=== PATIENT | female | born 1990 | race Hispanic/Latino ===

== ENCOUNTER → 2017-08-04 | Day surgery (SDC) | payer OTHER ==
[~2017-08-04] MED LIST: Acetaminophen 500 MG TAB PO PRN
[2017-08-04 16:13] VITALS: BP 109/55; TEMP 99.7; BMI 20.2
--- NOTE | 2017-08-04 16:49 | PDOC.EVN ---
Event Note - Event Note Event Note: Case reviewed with the residents tax services professional. This patient is a at 20 weeks and 2 days with symptoms of lower back pain and chills. HX CS X 2 in past. Some urinary sxs as well. We will: order cath UA and culture, CBC, CMP, and had flu last week. No URI sxs now.
[2017-08-04 17:02] LABS: #Basophils 0.1 thou/uL (0.0-0.2); #Eosinphils 0.4 thou/uL (0.0-0.7); #Lymphocytes 2.1 thou/uL (1.20-3.40); #Monocytes 0.7 thou/uL (0.11-0.59); #Neutrophils 9.5 thou/uL (1.40-6.50); %Basophils 0.7 % (0.0-1.0); %Eosinophils 3.4 % (0.0-10.0); %Lymphocytes 16.6 % (21.0-51.0); %Monocytes 5.7 % (0.0-10.0); %Neutrophils 73.7 % (42.0-75.0); Hemoglobin 12.4 g/dL (12.0-16.0); Mean Corpuscular HGB CONC 34.4 g/dL (32.0-36.0); Mean Corpuscular Hemoglobin 31.3 pg (27.0-31.0); Mean Platelet Volume 6.8 fL (7.4-10.4); Platelet Count 419 thou/uL (130-400); RBC Distribution Width 11.9 % (11.5-14.5); Red Blood Cell (RBC) Count 3.96 mill/uL (4.20-5.40); White Blood Cell (WBC) Count 12.8 thou/uL (4.8-10.8)
[2017-08-04 17:22] LABS: ALT (SGPT) 13 U/L (8-55); AST (SGOT) 10 U/L (5-34); Albumin 3.7 g/dL (3.5-5.0); Alkaline Phosphatase 55 U/L (40-150); Anion Gap 12 mmol/L (10-20); BUN (Urea Nitrogen) 7 mg/dL (7.0-18.7); Bilirubin, Total 0.2 mg/dL (0.2-1.2); Calc. Creatinine Clearance 121 mL/min (70-130); Calcium 9.5 mg/dL (7.8-10.44); Carbon Dioxide 26 mmol/L (22-29); Chloride 103 mmol/L (98-107); Estimated GFR-MDRD Greater than 90; Glucose 72 mg/dL (70-105); Potassium 4.2 mmol/L (3.5-5.1); Protein, Total 6.7 g/dL (6.0-8.3); Sodium 137 mmol/L (136-145)
[2017-08-04 17:38] LABS: Bilirubin Negative (Negative); Blood, Urine Large (Negative); Clarity CLEAR (Clear); Glucose, Urine (Dipstick) Negative (Negative); Leukocyte Negative (Negative); Nitrite Negative (Negative); Protein, Urine (Dipstick) Negative (Neg-Trace); Specific Gravity, Urine 1.012 (1.002-1.036); Urobilinogen 0.2 mg/dL (0.2-1.0)
[2017-08-04 17:41] LABS: Bacteria/HPF None Seen HPF (None Seen); Hyaline Casts/LPF 0-3 HYALINE CAST LPF (0-3 Hyaline); Squamous Epithelial None Seen HPF (0-3); WBC/HPF None Seen HPF (0-3)
--- NOTE | 2017-08-04 18:13 | PDOC.EVN ---
Event Note - Event Note Event Note: Faculty note: Hematuria noted on UA. CBC with WBC 12, Creatinine normal. Due to left sided sxs, and hematuria, I have ordered left renal sono to eval for calculi. Residents aware.
--- NOTE | 2017-08-04 20:57 | ULT ---
RENAL ULTRASOUND: Indication: Flank pain, left sided, with hematuria. FINDINGS: There is symmetric renal sizes, approximately 12 cm in length bilaterally. There is mild prominence o f the right renal collecting system. No evidence of a left sided hydronephrosis. Urinary bladder is g rossly unremarkable. Incidental noted of a partially imaged intrauterine gestation. IMPRESSION: Mild prominence of right urinary collecting system which may be on the basis of patient's gestational state. Correlate clinically. If necessary, imaging follow up may be obtained. POS: [facility]
--- NOTE | 2017-08-04 21:02 | PDOC.EVN ---
Event Note - Event Note Event Note: Renal sono with no overt stone. As no bacteruria/pyuria, pyelo is less likely as DX. I suspect hemorrhagic cystitis. No temp/fever here. OK for outpatient RX with macrobid with clinic follow up to check urine culture and GC/CHL PCR which were collected today. Case D/W residents.
[2017-08-06 22:33] LABS: Chlamydia by PCR Not Detected (NotDetected); GC by PCR Not Detected (NotDetected)
== END | disposition home or self-care (01) ==
LOC: ERS 14:15 → L&D/OP 15:17
PROVIDERS: ATTEND Obstetrics & Gynecology
DX: O99.89 Other specified diseases and conditions complicating pregnancy, childbirth and the puerperium (principal); R10.9 Unspecified abdominal pain; M54.5 Low back pain; R68.83 Chills (without fever); Z3A.20 20 weeks gestation of pregnancy; Z79.899 Other long term (current) drug therapy; Z90.721 Acquired absence of ovaries, unilateral; Z98.890 Other specified postprocedural states
CPT/HCPCS: 36415; 51701; 76770; 80053; 81003; 81015; 84702; 85025; 87086; 87491; 87591; 99285; A4353

== ENCOUNTER 2019-11-30 21:34 | Emergency (ER) | payer OTHER, SELFPAY ==
[~2019-11-30 21:34] MED LIST changes: -Acetaminophen 500 MG TAB PO PRN; +Iopamidol-370 76% 500 ML 1 ML ONE
[2019-11-30] MEDS ORDERED: Ondansetron PF 4 MG/2 ML Vial ONE ×2 (21:47→22:00)
[2019-11-30] MEDS ORDERED: Ketorolac Tromethamine 30 MG/ML VIAL ONE ×2 (21:47→22:00)
[2019-11-30 22:18] LABS: Hemoglobin 13.4 g/dL (12.0-16.0); Mean Corpuscular HGB CONC 32.3 g/dL (32.0-36.0); Mean Corpuscular Hemoglobin 28.7 pg (27.0-31.0); Mean Corpuscular Volume 88.9 fL (78.0-98.0); Mean Platelet Volume 7.2 fL (7.4-10.4); Platelet Count 390 thou/uL (130-400); RBC Distribution Width 11.7 % (11.5-14.5); Red Blood Cell (RBC) Count 4.67 mill/uL (4.20-5.40); White Blood Cell (WBC) Count 20.1 thou/uL (4.8-10.8)
[2019-11-30 22:23] LABS: BHCG - Serum Negative (NEGATIVE); Pregs Control Background? CLEAR/WHITE (CLR/WHITE); Pregs Control Bar Appear? YES (CONTROL BAR)
[2019-11-30 22:34] LABS: ALT (SGPT) 11 U/L (8-55); AST (SGOT) 12 U/L (5-34); Albumin 4.5 g/dL (3.5-5.0); Alkaline Phosphatase 57 U/L (40-110); Anion Gap 13 mmol/L (10-20); BUN (Urea Nitrogen) 10 mg/dL (7.0-18.7); Band 2 % (5-11); Bilirubin, Total 0.2 mg/dL (0.2-1.2); Calc. Creatinine Clearance 0 mL/min (70-130); Calcium 9.2 mg/dL (7.8-10.44); Carbon Dioxide 28 mmol/L (22-29); Chloride 102 mmol/L (98-107); Eosinophils 1 % (0-10); Estimated GFR-MDRD Greater than 90; Globulin 3.3 g/dL (2.4-3.5); Glucose 93 mg/dL (70-105); Lymphocytes 18 % (21-51); MDiff Complete? YES; Monocytes 5 % (0-10); Neutrophil 74 % (42-75); Potassium 3.7 mmol/L (3.5-5.1); Protein, Total 7.8 g/dL (6.0-8.3); Sodium 139 mmol/L (136-145)
[2019-11-30 23:06] LABS: Bacteria/HPF None Seen HPF (None Seen); Bilirubin Negative (Negative); Blood, Urine 1+ (Negative); Clarity Clear (Clear); Glucose, Urine (Dipstick) Normal (Negative); Leukocyte Negative Leu/uL (Negative); Nitrite Negative (Negative); Protein, Urine (Dipstick) Negative (Neg-Trace); RBC/HPF 0-3 HPF (0-3); Squamous Epithelial 0-3 HPF (0-3); Urobilinogen Normal mg/dL (Less than 2); WBC/HPF 0-3 HPF (0-3)
--- NOTE | 2019-12-01 06:06 | CT ---
CT OF THE ABDOMEN AND PELVIS WITH IV CONTRAST: 11/30/19 INDICATION: 29-year-old female with right lower quadrant abdominal pain, nausea, vomiting. COMPARISON: None. FINDINGS: Lung bases are clear. The liver, pancreas, adrenal glands and spleen appear within normal limits. No hydronephrosis is evid ent. No free fluid is evident. There is a normal appendix in the right lower quadrant of the abdomen. There is mild free fluid seen within the pelvis. The bladder, rectum, and perirectal soft tissues are unremarkable appearing. The unopacified large bowel appears within normal limits. Unopacified small bowel appears within norm al limits. Reproductive structures reveal no definite acute abnormality. No acute osseous abnormality is evident . IMPRESSION: 1. No CT explanation for the patient's abdominal pain. 2. Mild free fluid in the pelvis is nonspecific and could be physiologic in nature. POS: [facility]
== END 2019-11-30 23:27 | disposition home or self-care (01) ==
LOC: ERS 21:34
DX: K52.9 Noninfective gastroenteritis and colitis, unspecified (principal); R11.2 Nausea with vomiting, unspecified
CPT/HCPCS: 74177; 80053; 81003; 81015; 84703; 85025; 96361; 96374; 96375; J1885; J2405; Q9967

== ENCOUNTER 2025-05-30 17:55 | Inpatient (IN) | payer SELFPAY ==
[~2025-05-30 17:55] MED LIST changes: -Iopamidol-370 76% 500 ML 1 ML ONE; +Iopamidol-370 76% 500 ML MDV (1 ML CHARGE) ONE
[2025-05-30 19:35] LABS: #Basophils 0.06 10x3/uL (0.0-0.2); #Eosinophils 0.18 10x3/uL (0.0-0.7); #Monocytes 0.67 10x3/uL (0.11-0.59); #Neutrophils 11.30 10x3/uL (1.40-6.50); %Basophils 0.4 % (0.0-1.0); %Eosinophils 1.2 % (0.0-10.0); %Lymphocytes 19.1 % (21.0-51.0); %Monocytes 4.4 % (0.0-10.0); %Neutrophils 74.4 % (42.0-75.0); Hematocrit 42.1 % (36.0-47.0); Hemoglobin 13.0 g/dL (12.0-16.0); Mean Corpuscular Hemoglobin 25.6 pg (27.0-31.0); Mean Corpuscular Volume 83.0 fL (78.0-98.0); Platelet Count 438 10x3/uL (130-400); Red Blood Cell (RBC) Count 5.07 mill/uL (4.20-5.40); White Blood Cell (WBC) Count 15.17 10x3/uL (4.8-10.8)
[2025-05-30 19:42] LABS: ALT (SGPT) 15 U/L (Less than 34); AST (SGOT) 16 U/L (11-34); Albumin 4.6 g/dL (3.1-4.5); Alkaline Phosphatase 64 U/L (40-110); Anion Gap 14 mmol/L (10-20); BUN (Urea Nitrogen) 8 mg/dL (7.0-18.7); Bilirubin, Total 0.3 mg/dL (0.3-1.2); Calc. Creatinine Clearance 0 mL/min (70-130); Calcium 9.6 mg/dL (7.8-10.44); Carbon Dioxide 24 mmol/L (22-29); Chloride 106 mmol/L (98-107); Globulin 3.3 g/dL (2.4-3.5); Glucose 96 mg/dL (70-105); Potassium 4.0 mmol/L (3.5-5.1); Sodium 140 mmol/L (136-145)
[2025-05-30 22:52] LABS: Bacteria/HPF None Seen HPF (None Seen); CAUTI Indications for Culture Alt mental st,lethar; Glucose, Urine (Dipstick) Normal (Negative); Leukocyte Negative Leu/uL (Negative); Protein, Urine (Dipstick) Negative (Neg-Trace); RBC/HPF None Seen HPF (0-3); Specific Gravity, Urine 1.015 (1.002-1.036); WBC/HPF None Seen HPF (0-3)
[2025-05-30 22:53] LABS: Urine Culture Reflex No No
[2025-05-31 00:03] LABS: BHCG - Serum Negative (NEGATIVE); Pregs Control Background? CLEAR/WHITE (CLR/WHITE); Pregs Control Bar Appear? YES (CONTROL BAR)
[2025-05-31] MEDS ORDERED: Aspirin Chewable 81 MG TAB ONE (00:52)
[2025-05-31] MEDS ORDERED: Acetaminophen 325 MG TAB PO PRN (02:45)
[2025-05-31 04:13] VITALS: BMI 24.5
[2025-05-31] MEDS: Ondansetron PF 4 MG/2 ML Vial IVP PRN (04:32)
[2025-05-31 05:44] LABS: #Basophils 0.04 10x3/uL (0.0-0.2); #Eosinophils 0.25 10x3/uL (0.0-0.7); #Monocytes 0.64 10x3/uL (0.11-0.59); #Neutrophils 5.86 10x3/uL (1.40-6.50); %Basophils 0.4 % (0.0-1.0); %Eosinophils 2.5 % (0.0-10.0); %Lymphocytes 31.0 % (21.0-51.0); %Monocytes 6.5 % (0.0-10.0); %Neutrophils 59.4 % (42.0-75.0); Hematocrit 39.5 % (36.0-47.0); Hemoglobin 12.2 g/dL (12.0-16.0); Mean Corpuscular Hemoglobin 25.7 pg (27.0-31.0); Mean Corpuscular Volume 83.3 fL (78.0-98.0); Platelet Count 378 10x3/uL (130-400); Red Blood Cell (RBC) Count 4.74 mill/uL (4.20-5.40); White Blood Cell (WBC) Count 9.87 10x3/uL (4.8-10.8)
[2025-05-31 05:58] LABS: Anion Gap 12 mmol/L (10-20); BUN (Urea Nitrogen) 8 mg/dL (7.0-18.7); Calc. Creatinine Clearance 120 mL/min (70-130); Calcium 8.7 mg/dL (7.8-10.44); Carbon Dioxide 21 mmol/L (22-29); Cardiac Risk 4.6 (Less than 4.5); Chloride 108 mmol/L (98-107); Cholesterol 164 mg/dl (< 200 Desired); Glucose 86 mg/dL (70-105); HDL Cholesterol 36 mg/dL (>60 Neg Risk); LDL Cholesterol, Calculated 101 mg/dL; Potassium 3.4 mmol/L (3.5-5.1); Sodium 138 mmol/L (136-145); Triglycerides 134 mg/dL (Less than 150)
[2025-05-31 16:55] LABS: Bacteria/HPF None Seen HPF (None Seen); CAUTI Indications for Culture Fever or rigors; Glucose, Urine (Dipstick) Normal (Negative); Leukocyte Negative Leu/uL (Negative); Protein, Urine (Dipstick) Negative (Neg-Trace); RBC/HPF 0-3 HPF (0-3); Specific Gravity, Urine 1.020 (1.002-1.036); Urine Culture Reflex No No; WBC/HPF 0-3 HPF (0-3)
[2025-05-31] MEDS: Ibuprofen 800 MG TAB PO PRN (17:59)
[2025-06-01 04:33] LABS: #Basophils 0.03 10x3/uL (0.0-0.2); #Eosinophils 0.44 10x3/uL (0.0-0.7); #Monocytes 0.58 10x3/uL (0.11-0.59); #Neutrophils 4.69 10x3/uL (1.40-6.50); %Basophils 0.3 % (0.0-1.0); %Eosinophils 5.0 % (0.0-10.0); %Lymphocytes 34.9 % (21.0-51.0); %Monocytes 6.5 % (0.0-10.0); %Neutrophils 53.0 % (42.0-75.0); Hematocrit 37.5 % (36.0-47.0); Hemoglobin 11.3 g/dL (12.0-16.0); Mean Corpuscular Hemoglobin 25.7 pg (27.0-31.0); Mean Corpuscular Volume 85.2 fL (78.0-98.0); Platelet Count 343 10x3/uL (130-400); Red Blood Cell (RBC) Count 4.40 mill/uL (4.20-5.40); White Blood Cell (WBC) Count 8.87 10x3/uL (4.8-10.8)
[2025-06-01 04:58] LABS: ALT (SGPT) 11 U/L (Less than 34); AST (SGOT) 14 U/L (11-34); Albumin 3.4 g/dL (3.1-4.5); Alkaline Phosphatase 47 U/L (40-110); Anion Gap 12 mmol/L (10-20); BUN (Urea Nitrogen) 8 mg/dL (7.0-18.7); Bilirubin, Total 0.3 mg/dL (0.3-1.2); Calc. Creatinine Clearance 114 mL/min (70-130); Calcium 8.3 mg/dL (7.8-10.44); Carbon Dioxide 17 mmol/L (22-29); Chloride 110 mmol/L (98-107); Globulin 2.6 g/dL (2.4-3.5); Glucose 94 mg/dL (70-105); Potassium 3.5 mmol/L (3.5-5.1); Sodium 135 mmol/L (136-145)
[2025-06-01 07:58] VITALS: BP 104/55; TEMP 98.7
[2025-06-01] MEDS: Sodium Bicarb 50 MEQ/50 ML Abboject 8.4% SYRINGE IVP SCH (10:19)
== END 2025-06-01 11:11 | disposition home or self-care (01) | DRG 149 ==
LOC: ERS 17:55 → ERHOLD 05-31 02:15 → 2NO 05-31 03:57 → OBSVTOIN 05-31 13:17
PROVIDERS: ADMIT Internal Medicine; ATTEND Hospitalist
DX: R42 Dizziness and giddiness (principal); R07.9 Chest pain, unspecified; R11.2 Nausea with vomiting, unspecified; H53.8 Other visual disturbances; Z98.890 Other specified postprocedural states; G43.909 Migraine, unspecified, not intractable, without status migrainosus
CPT/HCPCS: 36415; 70496; 70498; 70551; 80048; 80053; 80061; 81001; 84484; 84703; 85025; 87040; 93005; 96374; G0378; J2405; J7030; Q9967